=== PATIENT | male | born 1960 | race Caucasian/White ===

== ENCOUNTER → 2017-12-03 | Outpatient (CLI) | payer OTHER ==
[~2017-12-03] MED LIST: ASPIR 8181 MG PO; ATENOLOL100 MG PO; BYDUREON2 M1 SQ; CATAPRES-T0.2 MG/24 TD; DILTIAZEM240 MG PO; ELIQUIS5 MG PO; FARXIGA10 M1 PO; FUROSEMIDE40 MG PO; GLIMEPIRIDE4 MG PO; JANUMET 1000 MG1 TAB PO; LANTUS100 U/ML SC; LOSARTAN POTASS1 TA2 PO; POTASSIUM20 MEQ PO; SIMVASTATIN20 MG PO; VICTOZA6 MG/ML SC; VITAMIN D50000 I3 PO
[2017-12-03 08:07] LABS: ALBUMIN 3.6 gm/dl (3.1-4.5); ALKALINE PHOSPHATASE 56 U/L (45-117); BUN 23 mg/dl (7-24); CHLORIDE 103 mmol/L (98-107); CHOLESTEROL 100 mg/dL (<200); CREATININE 1.17 mg/dL (0.70-1.30); HDL CHOLESTEROL 33 mg/dl (40-60); LDL CHOLESTEROL 28 mg/dL (9-159); POTASSIUM 3.1 mmol/L (3.5-5.1); SGOT/AST 25 IU/L (3-35); SGPT/ALT 37 U/L (12-78); SODIUM 142 mmol/L (136-145); TOTAL PROTEIN 7.1 gm/dL (6.4-8.2); TRIGLYCERIDES 196 mg/dl (<150); VLDL CHOLESTEROL 39 mg/dL (6-40)
== END | disposition home or self-care (01) ==
LOC: LAB 07:17
DX: E11.65 Type 2 diabetes mellitus with hyperglycemia (principal)

== ENCOUNTER → 2021-09-21 | Outpatient (CLI) | payer BC ==
[~2021-09-21] MED LIST changes: +CO Q-1010 M2 PO; +LABETALOL HCL200 MG PO; +SYNJARDY 12.5-1 EACH PO; +VITAMIN C500 M4 PO
== END | disposition home or self-care (01) ==
LOC: CARD 00:22
PROVIDERS: ATTEND Internal Medicine Cardiovascular Disease
DX: I51.7 Cardiomegaly (principal); I48.91 Unspecified atrial fibrillation; I25.9 Chronic ischemic heart disease, unspecified; R06.02 Shortness of breath

== ENCOUNTER 2024-12-17 07:55 | Observation (INO) | payer BC ==
[~2024-12-17] VITALS: Ht 182.8 cm; Wt 138.3 kg
[~2024-12-17 07:55] MED LIST changes: +AMOXICILLIN500 M3 PO
[2024-12-17] MEDS ORDERED: Perflutren Protein Type A Mi 2 ML VIAL IV ONE (08:21)
[2024-12-17 08:32] VITALS: BP 127/77
[2024-12-17] MEDS ORDERED: HEPARIN SODIUM 250 ML IV SCH (09:10)
[2024-12-17 09:19] LABS: BASO # 0.1 10*3/uL (0.0-0.1); BASO % 0.4 % (0.0-1.0); EOS # 0.2 10*3/uL (0.0-0.4); EOS % 1.9 % (1.0-4.0); HEMATOCRIT 38.2 % (42.0-52.0); MEAN CORPUSCULAR HGB 27.3 pg (27.0-31.0); MEAN CORPUSCULAR HGB CONC 31.4 g/dl (33.0-37.0); MONO # 1.3 10*3/uL (0.1-1.0); NEUT # 8.2 10*3/uL (2.3-7.9); NEUT % 72.9 % (47.0-73.0); PLATELET COUNT AUTOMATED 220 10*3/uL (130-400); RED BLOOD COUNT 4.39 10*6/uL (4.50-5.90); RED CELL DISTRI WIDTH 16.1 % (0-14.5); WHITE BLOOD COUNT 11.2 10*3/uL (4.8-10.8)
[2024-12-17] MEDS ORDERED: ATORVASTATIN CA40 M1 PO (09:28)
[2024-12-17 09:29] LABS: ACT PARTIAL THROMBO TIME 29.3 SECONDS (20.0-32.1)
[2024-12-17] MEDS ORDERED: OZEMPIC2 MG/0.71 SQ (09:32)
[2024-12-17] MEDS ORDERED: NOVOLOG FL100 UNIT/2 SC (09:33)
[2024-12-17] MEDS ORDERED: TOUJEO MAX300 UNIT/1 SQ (09:35)
[2024-12-17] MEDS ORDERED: ZINC50 M4 PO (09:37)
[2024-12-17] MEDS ORDERED: KRILL OIL500 MG PO (09:38)
[2024-12-17] MEDS ORDERED: Albuterol Sulf/Ipratropium 3 ML VIAL NEB ONE (09:50)
[2024-12-17 11:14] VITALS: BP 123/64
[2024-12-17] MEDS ORDERED: ACETAMINOPHEN 325 MG TAB PO PRN (12:00)
[2024-12-17] MEDS ORDERED: Magnesium Hydroxide 30 ML UDC PO PRN (12:00)
[2024-12-17] MEDS ORDERED: BISACODYL 10 MG SUPP R PRN (12:00)
[2024-12-17] MEDS ORDERED: MORPHINE Sulfate 2 MG/ML SYR IV PRN (12:00)
[2024-12-17] MEDS ORDERED: Acetaminophen/Hydrocodone 5 MG/325 MG TABLET PO PRN (12:00)
[2024-12-17] MEDS ORDERED: BISACODYL 5 MG TAB PO PRN (12:00)
[2024-12-17] MEDS ORDERED: Ondansetron Hydrochloride 4 MG/2 ML VIAL IV PRN (12:00)
[2024-12-17] MEDS ORDERED: ACETAMINOPHEN 650 MG SUPP R PRN (12:00)
[2024-12-17] MEDS ORDERED: ASPIRIN 325 MG TAB PO ONE ×2 (14:25→14:45)
[2024-12-17] MEDS ORDERED: ASPIRIN, CHEWABLE 81 MG TAB ONE (15:14)
== END 2024-12-17 17:59 ==
LOC: ED 07:55 → EDHOLD 10:19
PROVIDERS: Internal Medicine; ADMIT Family Medicine; ATTEND Family Medicine
DX: R07.89 Other chest pain (principal); I48.11 Longstanding persistent atrial fibrillation; I21.11 ST elevation (STEMI) myocardial infarction involving right coronary artery; D72.829 Elevated white blood cell count, unspecified; D64.9 Anemia, unspecified; N17.0 Acute kidney failure with tubular necrosis; E11.65 Type 2 diabetes mellitus with hyperglycemia; E78.5 Hyperlipidemia, unspecified; G47.30 Sleep apnea, unspecified; I63.9 Cerebral infarction, unspecified; I25.110 Atherosclerotic heart disease of native coronary artery with unstable angina pectoris; Z79.84 Long term (current) use of oral hypoglycemic drugs; Z79.82 Long term (current) use of aspirin; Z79.899 Other long term (current) drug therapy